=== PATIENT | female | born 1965 | race Hispanic/Latino ===

== ENCOUNTER 2018-05-14 16:42 | Inpatient (IN) | payer SELFPAY ==
[~2018-05-14 16:42] MED LIST: ISOVUE-370 76%-LOCM 1 ML ONE
[2018-05-14 17:08] LABS: #Basophils 0.1 thou/uL (0.0-0.2); #Eosinphils 0.1 thou/uL (0.0-0.7); #Lymphocytes 2.2 thou/uL (1.20-3.40); #Monocytes 0.7 thou/uL (0.11-0.59); #Neutrophils 10.3 thou/uL (1.40-6.50); %Basophils 0.7 % (0.0-1.0); %Eosinophils 0.6 % (0.0-10.0); %Lymphocytes 16.4 % (21.0-51.0); %Monocytes 5.4 % (0.0-10.0); %Neutrophils 76.9 % (42.0-75.0); Mean Corpuscular HGB CONC 33.2 g/dL (32.0-36.0); Mean Corpuscular Hemoglobin 28.4 pg (27.0-31.0); Mean Corpuscular Volume 85.5 fL (78.0-98.0); Mean Platelet Volume 6.9 fL (7.4-10.4); Platelet Count 229 thou/uL (130-400); RBC Distribution Width 11.9 % (11.5-14.5); Red Blood Cell (RBC) Count 4.94 mill/uL (4.20-5.40); White Blood Cell (WBC) Count 13.3 thou/uL (4.8-10.8)
[2018-05-14 17:18] LABS: BHCG - Serum Negative (NEGATIVE); Pregs Control Background? CLEAR/WHITE (CLR/WHITE); Pregs Control Bar Appear? YES (CONTROL BAR)
[2018-05-14 17:23] LABS: ALT (SGPT) 60 U/L (8-55); AST (SGOT) 55 U/L (5-34); Albumin 4.5 g/dL (3.5-5.0); Alkaline Phosphatase 74 U/L (40-150); Anion Gap 11 mmol/L (10-20); BUN (Urea Nitrogen) 12 mg/dL (9.8-20.1); Bilirubin, Total 0.5 mg/dL (0.2-1.2); Calc. Creatinine Clearance 0 mL/min (70-130); Calcium 9.6 mg/dL (7.8-10.44); Carbon Dioxide 25 mmol/L (22-29); Chloride 107 mmol/L (98-107); Estimated GFR-MDRD 86; Globulin 2.2 g/dL (2.4-3.5); Glucose 114 mg/dL (70-105); Potassium 4.1 mmol/L (3.5-5.1); Protein, Total 6.7 g/dL (6.0-8.3); Sodium 139 mmol/L (136-145)
[2018-05-14] MEDS ORDERED: Ketamine 50 MG/ML (10ML VIAL) ONE (19:00)
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
--- NOTE | 2018-05-14 19:55 | RAD ---
LEFT ELBOW FOUR VIEWS: 05/14/18 HISTORY: Elbow pain status post trauma. There is no signs of fracture, dislocation or joint effusion. IMPRESSION: Negative left elbow. POS: [facility]
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
--- NOTE | 2018-05-14 21:07 | RAD ---
LEFT HAND THREE VIEWS: HISTORY: Hand injury. FINDINGS: There are arthritic changes of the hand. These changes are mainly related to the distal interphalang eal joints. Some changes of the first carpometacarpal joint space. There are no signs of fracture o r dislocation. IMPRESSION: No evidence of fracture. POS: [facility]
--- NOTE | 2018-05-14 21:09 | RAD ---
RIGHT WRIST THREE VIEWS: HISTORY: Wrist pain, status post injury. FINDINGS: Some minimal arthritic changes of the first carpometacarpal and triscaphe joints. There are no signs of fracture or dislocation. If trauma is suspected to the navicula, followup in 7-10 days would be recommended to exclude an occult fracture. IMPRESSION: No evidence of fracture. POS: [facility]
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
--- NOTE | 2018-05-14 21:26 | RAD ---
LEFT ANKLE SINGLE AP PROJECTION: HISTORY: Two views of the ankle are not provide. FINDINGS: The single projection again demonstrates dislocation of the talus, with respect to the calcaneus, as well as the tibia, with widening of the tibiotalar joint and prominent subcutaneous soft tissue swell ing. Splint material noted on the prior study has been removed. IMPRESSION: Persistent dislocation of the talus, with respect to the calcaneus and distal tibia. The talus is di slocated laterally and, as noted on the lateral view, the anterior aspect of the talus is dislocated superiorly, with respect to the navicular bone. An orthopedic consultation is recommended. POS: [facility]
[2018-05-14] MEDS ORDERED: Ondansetron PF 4 MG/2 ML Vial IVP PRN (21:38)
[2018-05-14] MEDS ORDERED: Dextrose 5% in Water 1,000 ML IV PRN (21:38)
[2018-05-14] MEDS ORDERED: Rib Fracture Protocol PO SCH (21:38)
[2018-05-14] MEDS ORDERED: Morphine 4 MG/ML VIAL SLOW IVP PRN (21:38)
[2018-05-14] MEDS ORDERED: Dextrose 50% Abboject 50 ML SYRINGE SLOW IVP PRN (21:38)
[2018-05-14] MEDS ORDERED: Promethazine HCl 25 MG/ML VIAL IM PRN (21:38)
[2018-05-14] MEDS ORDERED: hydrALAZINE 20 MG/ML VIAL SLOW IVP PRN (21:38)
[2018-05-14] MEDS ORDERED: Famotidine/PF 20 mg/2ml Vial ONE (22:15)
[2018-05-14] MEDS ORDERED: Cyclobenzaprine 10 MG TAB PO PRN (22:15)
[2018-05-14] MEDS ORDERED: Morphine 2 MG/ML SYRINGE ONE (22:15)
[2018-05-14] MEDS: Senokot S 8.6-50 MG TAB PO SCH (22:24)
[2018-05-14] MEDS: Sodium Chloride 0.9% 1,000 ML IV SCH (22:24)
[2018-05-14] MEDS: Famotidine/PF 20 mg/2ml Vial SLOW IVP SCH (22:24)
[2018-05-14] MEDS ORDERED: Gabapentin 300 MG CAP PO SCH (22:30)
[2018-05-15] MEDS: Ibuprofen 800 MG TAB PO SCH ×5 (00:29→23:28)
[2018-05-15] MEDS: Acetaminophen 500 MG TAB PO SCH ×5 (00:29→23:29)
[2018-05-15] MEDS: traMADol HCl 50 MG TAB PO SCH ×5 (00:29→23:29)
[2018-05-15 00:38] VITALS: BMI 33.6
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
[2018-05-15 04:36] LABS: #Eosinphils 0.2 thou/uL (0.0-0.7); #Lymphocytes 1.6 thou/uL (1.20-3.40); #Monocytes 0.7 thou/uL (0.11-0.59); #Neutrophils 5.4 thou/uL (1.40-6.50); %Basophils 0.3 % (0.0-1.0); %Eosinophils 1.9 % (0.0-10.0); %Lymphocytes 19.8 % (21.0-51.0); %Monocytes 8.7 % (0.0-10.0); %Neutrophils 69.2 % (42.0-75.0); Mean Corpuscular HGB CONC 33.3 g/dL (32.0-36.0); Mean Corpuscular Hemoglobin 28.8 pg (27.0-31.0); Mean Corpuscular Volume 86.7 fL (78.0-98.0); Mean Platelet Volume 8.1 fL (7.4-10.4); Platelet Count 149 thou/uL (130-400); RBC Distribution Width 11.8 % (11.5-14.5); Red Blood Cell (RBC) Count 4.17 mill/uL (4.20-5.40); White Blood Cell (WBC) Count 7.9 thou/uL (4.8-10.8)
[2018-05-15 04:57] LABS: Anion Gap 15 mmol/L (10-20); BUN (Urea Nitrogen) 9 mg/dL (9.8-20.1); Calc. Creatinine Clearance 137 mL/min (70-130); Calcium 9.1 mg/dL (7.8-10.44); Carbon Dioxide 20 mmol/L (22-29); Chloride 107 mmol/L (98-107); Estimated GFR-MDRD Greater than 90; Glucose 126 mg/dL (70-105); Phosphorus 3.9 mg/dL (2.3-4.7); Potassium 4.2 mmol/L (3.5-5.1); Sodium 138 mmol/L (136-145)
[2018-05-15] MEDS ORDERED: Clindamycin/D5W 900 MG in Premix Bag 1 BAG IVPB SCH (08:15)
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
[2018-05-15] MEDS: Sodium Chloride 0.9% 1,000 ML IV SCH ×2 (09:08→17:08)
[2018-05-15] MEDS: Senokot S 8.6-50 MG TAB PO SCH ×2 (09:14→20:18)
[2018-05-15] MEDS: Gabapentin 300 MG CAP PO SCH ×3 (09:14→20:19)
[2018-05-15] MEDS: Polyethylene Glycol 3350 17 GM Packet PO SCH (09:14)
[2018-05-15] MEDS: Famotidine/PF 20 mg/2ml Vial SLOW IVP SCH ×2 (09:23→20:19)
[2018-05-15] MEDS ORDERED: Fentanyl 100 MCG/2 ML VIAL ONE (12:07)
[2018-05-15] MEDS ORDERED: Lidocaine 1% PF 5 ML VIAL ONE (12:43)
[2018-05-15] MEDS ORDERED: PROPOFOL 200 MG/20 ML VIAL ONE (12:43)
[2018-05-15] MEDS ORDERED: Ondansetron PF 4 MG/2 ML Vial ONE (12:43)
[2018-05-15] MEDS ORDERED: Rocuronium Bromide 10 MG/ML (10ML VIAL) ONE (12:43)
[2018-05-15] MEDS ORDERED: Clindamycin/D5W 900 mg/50 ml Premix Bag ONE (12:44)
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
--- NOTE | 2018-05-15 15:54 | RAD ---
LEFT ANKLE THREE VIEWS: History: Closed reduction. FINDINGS: These are C-arm views which show what appears to be fairly satisfactory alignment of the talar navicu lar and ankle joint on these images. The subtalar joint also appears to be in fairly good alignment a s seen on the lateral view. IMPRESSION: Findings suggest fairly good closed reduction. Alignment of the talonavicular, subtalar and ankle martin nt appears satisfactory on these images. POS: TPC
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
[2018-05-16] MEDS: Sodium Chloride 0.9% 1,000 ML IV SCH (03:19)
[2018-05-16 04:52] LABS: #Basophils 0.1 thou/uL (0.0-0.2); #Eosinphils 0.1 thou/uL (0.0-0.7); #Lymphocytes 1.9 thou/uL (1.20-3.40); #Monocytes 0.4 thou/uL (0.11-0.59); #Neutrophils 2.9 thou/uL (1.40-6.50); %Eosinophils 1.4 % (0.0-10.0); %Lymphocytes 35.9 % (21.0-51.0); %Monocytes 7.5 % (0.0-10.0); %Neutrophils 54.2 % (42.0-75.0); Hemoglobin 10.2 g/dL (12.0-16.0); Mean Corpuscular HGB CONC 32.7 g/dL (32.0-36.0); Mean Corpuscular Hemoglobin 28.2 pg (27.0-31.0); Mean Corpuscular Volume 86.1 fL (78.0-98.0); Mean Platelet Volume 6.9 fL (7.4-10.4); Platelet Count 149 thou/uL (130-400); RBC Distribution Width 11.8 % (11.5-14.5); Red Blood Cell (RBC) Count 3.61 mill/uL (4.20-5.40); White Blood Cell (WBC) Count 5.3 thou/uL (4.8-10.8)
[2018-05-16 05:12] LABS: Anion Gap 11 mmol/L (10-20); BUN (Urea Nitrogen) 9 mg/dL (9.8-20.1); Calc. Creatinine Clearance 135 mL/min (70-130); Calcium 8.6 mg/dL (7.8-10.44); Carbon Dioxide 23 mmol/L (22-29); Chloride 111 mmol/L (98-107); Estimated GFR-MDRD Greater than 90; Glucose 116 mg/dL (70-105); Magnesium 1.7 mg/dL (1.6-2.6); Phosphorus 3.6 mg/dL (2.3-4.7); Potassium 3.8 mmol/L (3.5-5.1); Sodium 141 mmol/L (136-145)
[2018-05-16] MEDS: Ibuprofen 800 MG TAB PO SCH ×2 (05:20→13:35)
[2018-05-16] MEDS: traMADol HCl 50 MG TAB PO SCH ×2 (05:20→13:27)
[2018-05-16] MEDS: Acetaminophen 500 MG TAB PO SCH ×2 (05:20→13:27)
[2018-05-16] MEDS: Senokot S 8.6-50 MG TAB PO SCH (08:27)
[2018-05-16] MEDS: Famotidine/PF 20 mg/2ml Vial SLOW IVP SCH (08:27)
[2018-05-16] MEDS: Gabapentin 300 MG CAP PO SCH (08:27)
[2018-05-16] MEDS: Polyethylene Glycol 3350 17 GM Packet PO SCH (08:36)
[2018-05-16] MEDS ORDERED: Aspirin 325 mg Enteric Coated Tablet PO SCH (09:00)
[2018-05-16 11:59] VITALS: BP 122/76; TEMP 98.2
--- NOTE | 2018-05-16 12:26 | EKG ---
Test Reason : PREOPERATIVE Blood Pressure : / mmHG Vent. Rate : 083 BPM Atrial Rate : 083 BPM P-R Int : 158 ms QRS Dur : 100 ms QT Int : 390 ms P-R-T Axes : 063 020 028 degrees QTc Int : 458 ms Sinus rhythm with Premature supraventricular complexes Otherwise normal ECG Confirmed by ISABELLA ARTIS, LESLIE Sutton ([id number]), assistant production editor EUGENIA ROSALES ([id number]) on 05/16/2018 12:25:56 PM Referred By: Confirmed By:LESLIE MASON MD
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
== END 2018-05-16 14:28 | disposition home or self-care (01) | DRG 184 ==
LOC: ERS 16:42 → ERHOLD 19:52 → CCU 23:44 → SURG A 05-15 14:48
PROVIDERS: ADMIT Surgery; ATTEND Surgery
PROC: 0QSMXZZ Reposition Left Tarsal, External Approach (ICD-10-PCS; principal; 2018-05-15)
DX: S22.42XA Multiple fractures of ribs, left side, initial encounter for closed fracture (principal); S22.20XA Unspecified fracture of sternum, initial encounter for closed fracture; S93.05XA Dislocation of left ankle joint, initial encounter; I10 Essential (primary) hypertension; E11.9 Type 2 diabetes mellitus without complications; E04.1 Nontoxic single thyroid nodule; R40.2413 Glasgow coma scale score 13-15, at hospital admission; Z90.710 Acquired absence of both cervix and uterus; Z88.0 Allergy status to penicillin; V89.2XXA Person injured in unspecified motor-vehicle accident, traffic, initial encounter; Y92.411 Interstate highway as the place of occurrence of the external cause
CPT/HCPCS: 27840; 36415; 70450; 71045; 71260; 72125; 72170; 74177; 76000; 80048; 80053; 83735; 84100; 84484; 84703; 85025; 93005; 94640; 96360; 96361; 99152; 99153; 99292; G0390; J2001; J2270; J2405; J2704; J3010; J3490; J7620; Q9966; S0028

== ENCOUNTER 2018-06-10 13:25 | Outpatient (CLI) | payer OTHER ==
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
== END 2018-06-10 13:26 | disposition home or self-care (01) ==
LOC: RAD 13:25
PROVIDERS: ATTEND Physician Assistant
DX: S22.49XA Multiple fractures of ribs, unspecified side, initial encounter for closed fracture (principal); S22.20XA Unspecified fracture of sternum, initial encounter for closed fracture
CPT/HCPCS: 71046